=== PATIENT | male | born 1975 | race Caucasian/White ===

== ENCOUNTER 2021-06-24 16:39 | Emergency (ER) | payer OTHER ==
[~2021-06-24] VITALS: Ht 177.8 cm; Wt 117.9 kg
[2021-06-24 17:07] LABS: URINE BILIRUBIN NEGATIVE (Negative); URINE BLOOD NEGATIVE (Negative); URINE CLARITY CLEAR; URINE COLOR YELLOW; URINE GLUCOSE-RANDOM NEGATIVE (Negative); URINE KETONES NEGATIVE (Negative); URINE LEUKOCYTES NEGATIVE (Negative); URINE NITRITE NEGATIVE (Negative); URINE PROTEIN NEGATIVE (Negative); URINE SPECIFIC GRAVITY >= 1.030 (1.005-1.030); URINE UROBILINOGEN 0.2 E.U./dl (0.2-1.0)
[2021-06-24] MEDS ORDERED: NORFLEX100 MG PO (18:34)
[2021-06-24 18:50] VITALS: BP 153/92
--- NOTE | 2021-06-25 09:46 | EKG ---
[place] [address] ELECTROCARDIOGRAM REPORT Name: MINI ZAMUDIO Room: [facility]#: [id number] Admission: 06/24/21 Attend Phys: Discharge: 06/24/21 Date of : 73 Date of Service: 06/24/211750 Report #: [id number] THIS REPORT FOR: //name// [facility] ED Test Date: 2021-06-24 Test Time: 17:51:53 Pat Name: MINI ZAMUDIO Department: Room: Gender: Manager It Security: [place]UB[place] : 1975 Requested By: Juanjose Schaeffer Order Number: [id number] MD: Lavell Dubon Measurements Intervals [place] Rate: 71 P: 44 HI: 133 QRS: 74 QRSD: 106 T: 34 QT: 411 QTc: 447 Interpretive Statements Sinus rhythm No previous ECG available for comparison Electronically Signed On 06-25-2021 9:46:20 [employer] by Lavell Dubon [email or web address] <ELECTRONICALLY SIGNED> By: Lavell Dubon MD, [facility] 06/25/21 0946 50 50 Lavell Dubon MD, FACC /EPI
== END 2021-06-24 18:51 | disposition home or self-care (01) ==
LOC: M.ERS 16:39
PROVIDERS: Physician Assistant
DX: S16.1XXA Strain of muscle, fascia and tendon at neck level, initial encounter (principal); M25.512 Pain in left shoulder; M25.552 Pain in left hip; R20.0 Anesthesia of skin; G43.909 Migraine, unspecified, not intractable, without status migrainosus; V89.2XXA Person injured in unspecified motor-vehicle accident, traffic, initial encounter; Y93.89 Activity, other specified; Y92.488 Other paved roadways as the place of occurrence of the external cause; Y99.8 Other external cause status